=== PATIENT | male | born 1945 | race Caucasian/White ===

== ENCOUNTER 2018-06-09 10:17 | Emergency (ER) | payer OTHER ==
--- NOTE | 2018-06-09 10:40 | PDOC ---
History of Present Illness - General History Source: Patient Exam Limitations: No Limitations - History of Present Illness Initial Comments: 06/09/18 12:03 The patient is a 72 year old male, with a significant PMH of hypertension and diabetes mellitus, who presents to the emergency department with an episode of dizziness, diaphoresis and chest tightness beginning last night. The patient states he went to the bathroom last night and while in the restroom began to experience dizziness, diaphoresis, chest tightness and endorses feeling like he might pass out. The patient denies nausea, palpitations, chest pain, syncope, or room spinning sensation. The patient states he was able to crawl back to his bedroom after the episode. The patient also notes feeling off balance as of lately. The patient denies personal history of cardiac issues or surgery. The patient states his father passed of a myocardial infarction at age 57. The patient denies chest pain, shortness of breath, headache. Denies fever, chills, nausea, vomit, diarrhea and constipation. Denies dysuria, frequency, urgency and hematuria. Allergies: NKA Social history: No reported PCP: Dr Cano <Marcos Morales - Last Filed: 06/09/18 12:03> <Cary Mead - Last Filed: 06/09/18 12:59> - General Chief Complaint: Chest Pain Stated Complaint: PCP SENT Time Seen by Provider: 06/09/18 10:35 Past History <Marcos Morales - Last Filed: 06/09/18 12:03> <Cary Mead - Last Filed: 06/09/18 12:59> - Past Medical History Allergies/Adverse Reactions: Allergies Allergy/AdvReac Type Severity Reaction Status Date / Time No Known Allergies Allergy Verified 06/09/18 10:38 Review of Systems - Review of Systems Comments:: 06/09/18 12:04 GENERAL/CONSTITUTIONAL: No fever or chills. No weakness. HEAD, EYES, EARS, NOSE AND THROAT: No change in vision. No ear pain or discharge. No sore throat. CARDIOVASCULAR: (+) Chest tightness. (+) Lightheadedness. (+) Diaphoresis. No chest pain. No shortness of breath. RESPIRATORY: No cough, wheezing, or hemoptysis. GASTROINTESTINAL: No nausea, vomiting, diarrhea or constipation. GENITOURINARY: No dysuria, frequency, or change in urination. MUSCULOSKELETAL: No joint or muscle swelling or pain. No neck or back pain. SKIN: No rash NEUROLOGIC: (+) Dizziness. No headache, vertigo, loss of consciousness, or change in strength/sensation. ENDOCRINE: No increased thirst. No abnormal weight change. HEMATOLOGIC/LYMPHATIC: No anemia, easy bleeding, or history of blood clots. ALLERGIC/IMMUNOLOGIC: No hives or skin allergy. <Marcos Morales - Last Filed: 06/09/18 12:03> *Physical Exam - Vital Signs Last Vital Signs Temp Pulse Resp BP Pulse Ox 97.9 F 69 16 139/83 99 06/09/18 10:41 06/09/18 10:41 06/09/18 10:41 06/09/18 10:41 06/09/18 10:41 <Marcos Morales - Last Filed: 06/09/18 12:03> - Physical Exam Comments: GENERAL: Awake, alert, and fully oriented, in no acute distress HEAD: No signs of trauma EYES: PERRLA, EOMI, sclera anicteric, conjunctiva clear ENT: Auricles normal inspection, hearing grossly normal, nares patent, oropharynx clear without exudates. Moist mucosa NECK: Normal ROM, supple, no lymphadenopathy, JVD, or masses LUNGS: Breath sounds equal, clear to auscultation bilaterally. No wheezes, and no crackles HEART: Regular rate and rhythm, normal S1 and S2, no murmurs, rubs or gallops ABDOMEN: Soft, nontender, normoactive bowel sounds. No guarding, no rebound. No masses EXTREMITIES: Normal range of motion, no edema. No clubbing or cyanosis. No cords, erythema, or tenderness NEUROLOGICAL: Cranial nerves II through XII grossly intact. Normal speech, normal gait. Motor and sensation intact SKIN: Warm, Dry, normal turgor, no rashes or lesions noted. <Cary Mead - Last Filed: 06/09/18 12:59> Moderate Sedation - Procedure Monitoring Vital Signs: Procedure Monitoring Vital Signs Temperature 97.9 F 06/09/18 10:41 Pulse Rate 69 06/09/18 10:41 Respiratory Rate 16 06/09/18 10:41 Blood Pressure 139/83 06/09/18 10:41 O2 Sat by Pulse Oximetry (%) 99 06/09/18 10:41 <Marcos Morales - Last Filed: 06/09/18 12:03> ED Treatment Course - LABORATORY CBC & Chemistry Diagram: 06/09/18 11:05 06/09/18 10:40 - ADDITIONAL ORDERS Additional order review: Laboratory Results 06/09/18 06/09/18 11:05 10:40 PT with INR 12.00 INR 1.02 Sodium 139 Potassium 4.6 Chloride 104 Carbon Dioxide 29 Anion Gap 6 L BUN 22 H Creatinine 1.0 Creat Clearance w eGFR > 60 Random Glucose 98 Calcium 9.4 Total Bilirubin 0.5 AST 80 H ALT 102 H Alkaline Phosphatase 112 Troponin I < 0.02 Total Protein 7.3 Albumin 4.0 06/09/18 11:05 RBC 4.72 MCV 90.6 MCHC 34.6 RDW 12.6 MPV 10.0 D Neutrophils % 58.2 Lymphocytes % 23.7 D Monocytes % 13.9 H Eosinophils % 3.1 Basophils % 1.1 <Marcos Morales - Last Filed: 06/09/18 12:03> - LABORATORY CBC & Chemistry Diagram: 06/09/18 11:05 06/09/18 10:40 <Cary Mead - Last Filed: 06/09/18 12:59> Medical Decision Making - Medical Decision Making 06/09/18 12:00 Pt sent in by PMD for episode of cp last night associated with dizziness and sweating. EKG different from prior. Sent for cardiac workup. When results have returned, will discuss with Dr. Cano. 06/09/18 12:58 Labs wnl, trop negative. Discussed with Dr. Cano, present in ED. Stable for DC home, as symptoms started last night. <Cary Mead - Last Filed: 06/09/18 12:59> *DC/Admit/Observation/Transfer - Attestations Scribe Attestion: 06/09/18 12:05 Documentation prepared by Marcos Morales, acting as medical operations supervisor for Cary Mead MD. <Marcos Morales - Last Filed: 06/09/18 12:03> - Discharge Dispostion Decision to Admit order: No <Cary Mead - Last Filed: 06/09/18 12:59> Diagnosis at time of Disposition: Chest pain Qualifiers: Chest pain type: unspecified Qualified Code(s): R07.9 - Chest pain, unspecified - Discharge Dispostion Disposition: HOME Condition at time of disposition: Stable - Referrals Referrals: Cassandra Rehman MD [Primary Care Provider] - - Patient Instructions Printed Discharge Instructions: DI for Chest Pain
[2018-06-09 10:55] VITALS: BMI 29.9
[2018-06-09 11:22] LABS: BASO % 1.1 % (0-2.0); EOS % 3.1 % (0-4.5); HEMATOCRIT 42.8 % (35.4-49); HEMOGLOBIN 14.8 GM/dL (11.7-16.9); LYMPH % 23.7 % (8-40); MCH 31.4 pg (25.7-33.7); MCHC 34.6 g/dl (32.0-35.9); MEAN CELL VOLUME 90.6 fl (80-96); MONO % 13.9 % (3.8-10.2); NEUT % 58.2 % (42.8-82.8); PLATELET COUNT 136 K/MM3 (134-434); RBC 4.72 M/mm3 (4.00-5.60); RDW 12.6 % (11.9-15.9); WHITE BLOOD COUNT 4.5 K/mm3 (4.0-10.0)
[2018-06-09 11:29] LABS: INR 1.02 (0.83-1.09)
[2018-06-09] MEDS ORDERED: ASPIRIN 81 MG CHEWABLE TABLETS PO ONE (11:49)
[2018-06-09 12:00] LABS: ALK PHOS 112 U/L (45-117); ANION GAP 6 MMOL/L (8-16); BILIRUBIN,TOTAL 0.5 mg/dL (0.2-1); BLOOD UREA NITROGEN 22 mg/dL (7-18); CALCIUM 9.4 mg/dL (8.5-10.1); CHLORIDE 104 mmol/L (98-107); CO2 29 mmol/L (21-32); GLUCOSE,RANDOM 98 mg/dL (74-106); POTASSIUM 4.6 mmol/L (3.5-5.1); SGOT/AST 80 U/L (15-37); SGPT/ALT 102 U/L (13-61); SODIUM 139 mmol/L (136-145); TOT PROT 7.3 g/dl (6.4-8.2)
--- NOTE | 2018-06-09 12:21 | EKG ---
Test Reason : Blood Pressure : / mmHG Vent. Rate : 072 BPM Atrial Rate : 072 BPM P-R Int : 174 ms QRS Dur : 090 ms QT Int : 378 ms P-R-T Axes : 003 022 043 degrees QTc Int : 413 ms SINUS RHYTHM WITH OCCASIONAL PREMATURE VENTRICULAR COMPLEXES NO PREVIOUS ECGS AVAILABLE Confirmed by NADINE SINCLAIR MD ([id number]) on 06/09/2018 12:21:09 PM Referred By: Confirmed By:NADINE SINCLAIR MD
[2018-06-09] MEDS ORDERED: ASPIRIN COATED 81 MG TABLET.EC ONE (12:23)
[2018-06-09 14:12] VITALS: BP 130/76; PULSE 72; TEMP 97.8
== END 2018-06-09 14:09 | disposition home or self-care (01) ==
LOC: JER 10:17
DX: R07.9 Chest pain, unspecified (principal); I10 Essential (primary) hypertension; E11.9 Type 2 diabetes mellitus without complications
CPT/HCPCS: 36415; 71045-TC-FY; 80053; 84484; 85025; 85610; 93005; 93010; 99282-25

== ENCOUNTER 2021-01-15 06:47 | Day surgery (SDC) | payer OTHER ==
[2021-01-13 13:39] VITALS: BMI 35.9
[2021-01-15 07:16] VITALS: TEMP 97.8
[2021-01-15] MEDS ORDERED: LIDOCAINE HCL/PF 2% SDV 5ML VIAL ONE (07:17)
[2021-01-15] MEDS ORDERED: PROPOFOL 20 ML ONE ×4 (07:17)
[2021-01-15 09:15] VITALS: BP 90/55; PULSE 61
== END 2021-01-15 09:20 | disposition home or self-care (01) ==
LOC: FASU-ENDO 06:47
PROVIDERS: ATTEND Internal Medicine Gastroenterology
PROC: 0DBL8ZX Excision of Transverse Colon, Via Natural or Artificial Opening Endoscopic, Diagnostic (ICD-10-PCS; principal; 2021-01-15 08:30)
DX: Z12.11 Encounter for screening for malignant neoplasm of colon (principal); D12.3 Benign neoplasm of transverse colon
CPT/HCPCS: 82962

== ENCOUNTER 2021-02-01 11:10 | Emergency (ER) | payer OTHER ==
[2021-02-01 11:30] VITALS: BMI 34.9
[2021-02-01] MEDS ORDERED: MECLIZINE HCL 25 MG TABLET (FP) PO ONE (13:00)
[2021-02-01] MEDS ORDERED: LACTATED RINGERS SOLUTION 1000 ML INFUS.BAG IV ONE (13:01)
[2021-02-01] MEDS ORDERED: MECLIZINE HCL 25 MG TABLET (FP) ONE (13:11)
[2021-02-01 13:12] LABS: HEMATOCRIT 39.1 % (35.4-49); HEMOGLOBIN 13.9 GM/dL (11.7-16.9); MCH 31.5 pg (25.7-33.7); MCHC 35.5 g/dl (32.0-35.9); MEAN CELL VOLUME 88.8 fl (80-96); MEAN PLT VOLUME 8.2 fl (7.5-11.1); PLATELET COUNT 143 10^3/uL (134-434); WHITE BLOOD COUNT 5.6 K/mm3 (4.0-10.0)
[2021-02-01 13:27] LABS: CHLORIDE 110 mmol/L (98-107); SODIUM 140 mmol/L (136-145)
[2021-02-01 13:31] LABS: ALBUMIN 3.6 g/dl (3.4-5.0); ANION GAP 4 MMOL/L (8-16); BLOOD UREA NITROGEN 15.7 mg/dL (7-18); CALCIUM 8.9 mg/dL (8.5-10.1); CO2 26 mmol/L (21-32)
[2021-02-01 13:32] LABS: GLUCOSE,RANDOM 90 mg/dL (74-106)
[2021-02-01 13:34] LABS: SGOT/AST 21 U/L (15-37); SGPT/ALT 26 U/L (13-61)
[2021-02-01 13:36] LABS: BILIRUBIN,TOTAL 0.5 mg/dL (0.2-1); TOT PROT 6.8 g/dl (6.4-8.2)
[2021-02-01 13:37] LABS: ALK PHOS 86 U/L (45-117)
[2021-02-01 16:19] LABS: OVALOCYTE 1+; PLATELET ESTIMATE SLT DECREASE; ROULEAU 1+
[2021-02-01 17:43] VITALS: BP 145/84; PULSE 78; TEMP 98
== END 2021-02-01 17:43 | disposition home or self-care (01) ==
LOC: JER 11:10
DX: R26.81 Unsteadiness on feet (principal); R42 Dizziness and giddiness
CPT/HCPCS: 36415; 70450-TC; 80053; 84484; 85027; 93005; 93010; 99284-25; C9803; U0003; U0005